=== PATIENT | male | born 1935 | race Asian ===

== ENCOUNTER 2017-12-30 13:53 | Emergency (ER) | payer MEDICARE ==
[~2017-12-30] VITALS: Ht 160 cm; Wt 55.8 kg
[2017-12-30 15:40] VITALS: BP 144/60
[2017-12-30] MEDS ORDERED: ACETAMINOPHEN 325 MG TAB PO ONE (16:00)
== END 2017-12-30 16:33 | disposition home or self-care (01) ==
LOC: ER 13:53
DX: S02.2XXA Fracture of nasal bones, initial encounter for closed fracture (principal); S00.83XA Contusion of other part of head, initial encounter; E11.9 Type 2 diabetes mellitus without complications; I10 Essential (primary) hypertension; Z95.0 Presence of cardiac pacemaker; Z88.0 Allergy status to penicillin; W18.39XA Other fall on same level, initial encounter; Y93.89 Activity, other specified; Y99.8 Other external cause status; Y92.89 Other specified places as the place of occurrence of the external cause
CPT/HCPCS: 70450; 70486